=== PATIENT | male | born 1960 | race Caucasian/White ===

== ENCOUNTER 2016-04-03 08:05 | Emergency (ER) | payer SELFPAY ==
[~2016-04-03] VITALS: Ht 177.8 cm; Wt 86.2 kg
[~2016-04-03 08:05] MED LIST: NAPR220C4 PO; OMEP20TA63 PO
--- NOTE | 2016-04-03 08:38 | PHYS DOC ---
Past Medical History Past Medical History: No Pertinent History Past Surgical History: No Surgical History Alcohol Use: Heavy Drug Use: None Adult General Chief Complaint Chief Complaint: COUGH HPI HPI Patient is a 55 year old male who presents with fevers, nonproductive cough, sinus congestion and weakness for the last 14 days. He states these had pressure behind both eyes and behind his nose and occasionally he gets up yellowish/green sputum mostly time is nonproductive dry hacking cough. He states she's has been feeling overall weak and not himself. He denies any falls, confusion, neck pain. States he's tried a lot of different over-the- counter remedies for his sinus congestion/pressure and nothing is working. Review of Systems Review of Systems Constitutional: Denies fever or chills [] Eyes: Denies change in visual acuity, redness, or eye pain [] HENT: Denies nasal congestion or sore throat [] Respiratory: Denies any shortness of breath but does have a nonproductive cough [] Cardiovascular: No additional information not addressed in HPI [] GI: Denies abdominal pain, nausea, vomiting, bloody stools or diarrhea [] : Denies dysuria or hematuria [] Musculoskeletal: Denies back pain or joint pain [] Integument: Denies rash or skin lesions [] Neurologic: Denies headache, focal weakness or sensory changes [] Endocrine: Denies polyuria or polydipsia [] Allergies Allergies Allergies Coded Allergies Type Severity Reaction Last Updated Verified No Known Drug Allergies 04/03/16 No Physical Exam Physical Exam Constitutional: Well developed, well nourished, no acute distress, non-toxic appearance. [] HENT: Normocephalic, atraumatic, bilateral external ears normal, oropharynx moist, no oral exudates, nose normal, tender palpation behind the frontal and maxillary sinuses bilaterally. [] Eyes: PERRLA, EOMI, conjunctiva normal, no discharge. [] Neck: Normal range of motion, no tenderness, supple, no stridor. [] Cardiovascular:Heart rate regular rhythm, no murmur [] Lungs & Thorax: Bilateral breath sounds clear to auscultation [] Abdomen: Bowel sounds normal, soft, no tenderness, no masses, no pulsatile masses. [] Skin: Warm, dry, no erythema, no rash. [] Back: No tenderness, no CVA tenderness. [] Extremities: No tenderness, no cyanosis, no clubbing, ROM intact, no edema. [] Neurologic: Alert and oriented X 3, normal motor function, normal sensory function, no focal deficits noted. [] Psychologic: Affect normal, judgement normal, mood normal. [] Current Patient Data Vital Signs Vital Signs Date Time Temp Pulse Resp B/P Pulse Ox O2 Delivery O2 Flow Rate FiO2 04/03/16 08:18 97.5 61 18 141/92 100 Room Air 97.5 Lab Values Laboratory Tests Test 04/03/16 08:45 04/03/16 08:46 Thyroid Stimulating Hormone (TSH) 3.422uIU/mL (0.358-3.74) Influenza Type A Antigen Negative (NEGATIVE) Influenza Type B Antigen Negative (NEGATIVE) White Blood Count 4.6x10^3/uL (4.0-11.0) Red Blood Count 4.82x10^6/uL (4.30-5.70) Hemoglobin 16.1g/dL (13.0-17.5) Hematocrit 45.7% (39.0-53.0) Mean Corpuscular Volume 95fL (79-100) Mean Corpuscular Hemoglobin 33pg (25-35) Mean Corpuscular Hemoglobin Concent 35g/dL (31-37) Red Cell Distribution Width 13.3% (11.5-14.5) Platelet Count 163x10^3/uL (140-400) Neutrophils (%) (Auto) 53% (31-73) Lymphocytes (%) (Auto) 32% (24-48) Monocytes (%) (Auto) 12% (0-9) H Eosinophils (%) (Auto) 2% (0-3) Basophils (%) (Auto) 1% (0-3) Neutrophils # (Auto) 2.4x10^3uL (1.8-7.7) Lymphocytes # (Auto) 1.4x10^3/uL (1.0-4.8) Monocytes # (Auto) 0.6x10^3/uL (0.0-1.1) Eosinophils # (Auto) 0.1x10^3/uL (0.0-0.7) Basophils # (Auto) 0.0x10^3/uL (0.0-0.2) Sodium Level 136mmol/L (136-145) Potassium Level 3.9mmol/L (3.5-5.1) Chloride Level 104mmol/L (98-107) Carbon Dioxide Level 24mmol/L (21-32) Anion Gap 8 (6-14) Blood Urea Nitrogen 13mg/dL (8-26) Creatinine 1.1mg/dL (0.7-1.3) Estimated GFR (Cockcroft-Gault) 69.0 Glucose Level 110mg/dL (70-99) H Calcium Level 8.9mg/dL (8.5-10.1) Creatine Kinase 49U/L (39-308) Creatine Kinase MB (Mass) 0.7ng/mL (0.0-3.6) Creatine Kinase MB Relative Index % (0-4) Troponin I Quantitative < 0.017ng/mL (0.000-0.055) AY-Aow-B-Type Natriuretic Peptide 30pg/mL (0-124) Laboratory Tests 04/03/16 08:46 Laboratory Tests 04/03/16 08:46 EKG EKG [] Radiology/Procedures Radiology/Procedures Chest x-ray does not show any acute cardiopulmonary process. Impressions: Sinusitis Course & Med Decision Making Course & Med Decision Making Pertinent Labs and Imaging studies reviewed. (See chart for details) Chest x-ray did not show any acute findings in addition to his labs. He has symptoms of sinusitis. He does not have a fever here or any other vital abnormalities. He's been discharged home with Nasonex, Claritin which are both [id number] and a prescription for doxycycline 100 mg twice a day for 10 days for his size. He is instructed to return back to the ER for neck pain, high fevers, shortness of breath, confusion or other concerns. He is to follow his primary care physician within a week. He is agreeable plan being discharge in stable condition at this time. Dragon Disclaimer Dragon Disclaimer This electronic medical record was generated, in whole or in part, using a voice recognition dictation system. Departure Departure Disposition: 01 HOME, SELF-CARE Condition: STABLE Referrals: MARGARET TALLEY MD (PCP) Scripts Doxycycline Monohydrate 100 Mg Capsule1 Cap PO BID #[id number] CAP Prov:CARMELO CORONEL MD 04/03/16 CARMELO CORONEL MD Apr 03, 2016 08:38
--- NOTE | 2016-04-03 09:04 | RAD ---
EXAM: Chest, 2 views. HISTORY: Fever. COMPARISON: None. FINDINGS: Frontal and lateral views of the chest are obtained. There is no infiltrate, effusion or pneumothorax. The heart is normal in size. IMPRESSION: No acute pulmonary finding.
[2016-04-03 09:08] LABS: CALCIUM 8.9 mg/dL (8.5-10.1); CREATININE 1.1 mg/dL (0.7-1.3); POTASSIUM 3.9 mmol/L (3.5-5.1)
[2016-04-03 09:19] LABS: BASO % 1 % (0-3); EOS % 2 % (0-3); HEMATOCRIT 45.7 % (39.0-53.0); HEMOGLOBIN 16.1 g/dL (13.0-17.5); LYMPH # 1.4 x10^3/uL (1.0-4.8); LYMPH % 32 % (24-48); MEAN CORPUSCULAR HEMOGLOBIN 33 pg (25-35); MEAN CORPUSCULAR HGB CONC 35 g/dL (31-37); MEAN CORPUSCULAR VOLUME 95 fL (79-100); MONO % 12 % (0-9); NEUT % 53 % (31-73); PLATELET COUNT 163 x10^3/uL (140-400); RED BLOOD COUNT 4.82 x10^6/uL (4.30-5.70); RED CELL DISTRIBUTION WIDTH 13.3 % (11.5-14.5); WHITE BLOOD COUNT 4.6 x10^3/uL (4.0-11.0)
[2016-04-03 09:21] LABS: CKMB MASS 0.7 ng/mL (0.0-3.6); CREATINE KINASE 49 U/L (39-308)
[2016-04-03 09:23] LABS: OBC FLU VALID
[2016-04-03] MEDS ORDERED: DOXY100C14 PO (09:49)
[2016-04-03 10:02] VITALS: BP 135/76
== END 2016-04-03 10:03 | disposition home or self-care (01) ==
LOC: ER 08:05
DX: J32.9 Chronic sinusitis, unspecified (principal)
CPT/HCPCS: 36415; 71020; 80048; 82553; 83880; 84443; 84484; 85027; 87804; 99285-25